=== PATIENT | female | born 1980 | race Caucasian/White ===

== ENCOUNTER 2017-07-02 19:51 | Emergency (ER) | payer OTHER ==
[~2017-07-02] VITALS: Ht 157.5 cm; Wt 83.9 kg
[2017-07-02 19:56] VITALS: BP_SYST 151
[2017-07-02] MEDS ORDERED: NACL 0.9% 1,000 ML IV ONE (20:15)
[2017-07-02] MEDS ORDERED: LORazepam 2 MG/ML VIAL (FOR ER USE) IVP ONE (20:15)
[2017-07-02] MEDS ORDERED: KETOROLAC TROMETHAMINE 30 MG VIAL IVP ONE (20:15)
[2017-07-02] MEDS ORDERED: MORPHINE 4 MG/ML INJ. SYRINGE IVP ONE ×2 (20:45→22:15)
[2017-07-02] MEDS ORDERED: ALPR0.5T96 PO (21:24)
[2017-07-02] MEDS ORDERED: CELE200C PO (21:24)
[2017-07-02] MEDS ORDERED: GABA-533 PO (21:24)
[2017-07-02] MEDS ORDERED: VENL37.55 PO (21:24)
[2017-07-02 21:32] LABS: BASOPHILS # (AUTO) 0.1 K/uL (0.0-0.2); BASOPHILS % (AUTO) 0.9 % (0.0-2.0); EOSINOPHILS # (AUTO) 0.2 K/uL (0.0-0.4); EOSINOPHILS % (AUTO) 2.1 % (0.0-4.0); HEMATOCRIT 38.7 % (36-48); HEMOGLOBIN 12.9 g/dL (12.0-16.0); LYMPHOCYTES % (AUTO) 24.4 % (20.5-51.5); MEAN CORPUSCULAR HEMOGLOBIN 30 pg (27-31); MEAN CORPUSCULAR HGB CONC 34 % (32-36); MEAN CORPUSCULAR VOLUME 90 fL (79.0-98.0); MONOCYTES # (AUTO) 0.6 K/uL (0.0-1.0); MONOCYTES % (AUTO) 7.6 % (1.7-9.3); NEUTROPHILS # (AUTO) 5.2 K/uL (1.8-7.7); PLATELET COUNT (AUTO) 373 K/uL (130-430); RED BLOOD CELL COUNT(AUTO) 4.31 MIL/uL (4.2-6.2); RED CELL DISTRIBUTION WIDTH 12.5 % (9.0-15.0); WHITE BLOOD COUNT (AUTO) 8.1 K/uL (4.8-10.8)
[2017-07-02 21:39] LABS: CALCIUM 8.8 mg/dL (8.4-11.0); CREATININE 0.8 mg/dL (0.55-1.30)
[2017-07-02 21:42] LABS: PROTHROMBIN TIME 9.9 SECS (9.5-12.5)
[2017-07-02 21:44] LABS: ALBUMIN 3.6 g/dL (3.4-4.8); TOTAL BILIRUBIN 0.2 mg/dL (0.0-1.0)
[2017-07-02 22:59] VITALS: BP_SYST 127
== END 2017-07-02 22:59 | disposition home or self-care (01) ==
LOC: SED 19:51
DX: S82.145A Nondisplaced bicondylar fracture of left tibia, initial encounter for closed fracture (principal); S82.832A Other fracture of upper and lower end of left fibula, initial encounter for closed fracture; Z79.899 Other long term (current) drug therapy; W01.0XXA Fall on same level from slipping, tripping and stumbling without subsequent striking against object, initial encounter; Y93.01 Activity, walking, marching and hiking; Y92.89 Other specified places as the place of occurrence of the external cause; Y99.8 Other external cause status
CPT/HCPCS: 29505; 36415; 73564; 80053; 85025; 85610; 85730; 96361; 96374; 96375; 96376; 99285; J1885; J2060; J2270; J7030

== ENCOUNTER 2021-05-24 12:49 | Emergency (ER) | payer BC, OTHER ==
[~2021-05-24] VITALS: Ht 157.5 cm; Wt 93.0 kg
[~2021-05-24 12:49] MED LIST: ALPR0.5T PO; CELE200C PO; GABA-533 PO; VENL37.55 PO
--- NOTE | 2021-05-24 13:00 | NUR ---
Pt to bed #8 coming from home ambualtory with steady gait accompanied with family member. Pt is A&Ox4. No chest pain and no sob. Pt c/o right shoulder pain that started this morning. Pt went to her urgent care and her physician stated to come to the ER since pt was stating she wants a stronger pain medication. There was no trauma. Pt states she woke up and her arm started hurting abruptly. No deformity and pt denies n/v. Bed in lowest position. VSS.
[2021-05-24 13:01] VITALS: BP_SYST 138
[2021-05-24] MEDS ORDERED: OXYCODONE/ACETAMINOPHEN *10*mg/325 mg TABLET PO ONE (13:15)
[2021-05-24] MEDS ORDERED: KETOROLAC TROMETHAMINE 60 MG/2 ML VIAL IM ONE (13:15)
--- NOTE | 2021-05-24 13:15 | NUR ---
Pt to X-Ray ambulatory.
--- NOTE | 2021-05-24 13:30 | NUR ---
Dr. Ballesteros at bedside examining pt.
[2021-05-24] MEDS ORDERED: CYCLOBENZAPRINE HCL 10 MG TABLET (FLEXERIL) PO ONE (14:15)
[2021-05-24 14:37] LABS: BASOPHILS % (AUTO) 0.3 % (0.0-2.0); CREATININE 0.86 mg/dL (0.55-1.30); EOSINOPHILS # (AUTO) 0.1 K/uL (0.0-0.4); HEMATOCRIT 40.1 % (36-48); HEMOGLOBIN 13.5 g/dL (12.0-16.0); LYMPHOCYTES # (AUTO) 1.8 K/uL (1.0-5.5); LYMPHOCYTES % (AUTO) 23.8 % (20.5-51.5); MEAN CORPUSCULAR HEMOGLOBIN 30 pg (27-31); MEAN CORPUSCULAR HGB CONC 34 % (32-36); MEAN CORPUSCULAR VOLUME 90 fL (79.0-98.0); MONOCYTES # (AUTO) 0.6 K/uL (0.0-1.0); MONOCYTES % (AUTO) 7.9 % (1.7-9.3); PLATELET COUNT (AUTO) 277 K/uL (130-430); POTASSIUM 3.9 mmol/L (3.5-5.1); RED BLOOD CELL COUNT(AUTO) 4.47 MIL/uL (4.2-6.2); RED CELL DISTRIBUTION WIDTH 12.7 % (9.0-15.0); WHITE BLOOD COUNT (AUTO) 7.5 K/uL (4.8-10.8)
[2021-05-24 14:51] LABS: ALBUMIN 3.8 g/dL (3.4-4.8); TOTAL BILIRUBIN 0.2 mg/dL (0.0-1.0)
[2021-05-24 14:53] LABS: C-REACTIVE PROTEIN QUANT 0.3 mg/dL (0-0.5)
[2021-05-24] MEDS ORDERED: CYCL10TA24 PO (15:00)
[2021-05-24] MEDS ORDERED: ACET-2634 PO (15:10)
[2021-05-24] MEDS ORDERED: IBUP-1969 PO (15:10)
[2021-05-24 15:13] VITALS: BP_SYST 132
--- NOTE | 2021-05-24 15:14 | NUR ---
Patient given written and verbal discharge instructions and verbalizes understanding. ER MD discussed with patient the results and treatment provided. Patient in stable condition. ID arm band removed. Rx of Cyclobenzaprine given. Patient educated on pain management and to follow up with PMD. Pain Scale . Opportunity for questions provided and answered. Medication side effect fact sheet provided.
== END 2021-05-24 15:13 | disposition home or self-care (01) ==
LOC: SED 12:49
DX: R25.2 Cramp and spasm (principal); M25.511 Pain in right shoulder; Z79.899 Other long term (current) drug therapy
CPT/HCPCS: 36415; 73030; 80053; 82550; 83735; 85025; 86140; 96372; 99284; J1885